=== PATIENT | male | born 1950 | race Caucasian/White ===

== ENCOUNTER → 2021-01-09 | Outpatient (CLI) | payer MEDICARE, BC | LOC: CT 10:16 | DX: R09.89 Other specified symptoms and signs involving the circulatory and respiratory systems (principal); M47.812 Spondylosis without myelopathy or radiculopathy, cervical region; M40.50 Lordosis, unspecified, site unspecified | CPT/HCPCS: 70498; Q9967 ==

== ENCOUNTER → 2021-08-13 | Outpatient (CLI) | payer MEDICARE, BC | LOC: ECHO 08-12 09:00 | DX: R01.1 Cardiac murmur, unspecified (principal); I07.1 Rheumatic tricuspid insufficiency | CPT/HCPCS: ECHO; 93306 ==